=== PATIENT | female | born 1990 | race Caucasian/White ===

== ENCOUNTER 2021-10-13 12:08 | Outpatient (REF) | payer OTHER, SELFPAY ==
[2021-10-13 14:57] LABS: HCT 39.1 % (36.0-46.0); HGB 12.3 g/dL (11.2-15.7); MCH 26.7 pg (27.0-33.0); MCHC 31.5 % (32.0-36.0); MCV 85 fL (80-95); MPV 9.3 fL (8.0-11.0); Platelet Count 376 10^3/uL (130-400); RBC 4.61 10^6/uL (3.93-5.22); RDW 15.4 % (11.7-14.6); RDW-SD 47.8 fL; WBC 7.58 10^3/uL (4.4-10.8)
[2021-10-13 15:10] LABS: ALT 41 U/L (14-59); AST 23 U/L (15-37); Albumin 3.6 g/dL (3.4-5.0); Alkaline Phosphatase 130 U/L (46-116); Anion Gap 10.4 mmol/L (3-11); BUN 19 mg/dL (7-18); Bilirubin, Total 0.3 mg/dL (0.2-1.0); CO2 24.6 mmol/L (21.0-32.0); CREATININE 0.9 mg/dL (0.55-1.02); Calcium 8.8 mg/dL (8.5-10.1); Chloride 106 mmol/L (98-107); Glucose 91 mg/dL (74-106); Potassium 4.7 mmol/L (3.5-5.1); Sodium 141 mmol/L (136-145); TSH 1.97 uIU/mL (0.36-3.74); Total Protein 7.1 g/dL (6.4-8.2)
[2021-10-14 10:07] LABS: HIV-1/2 Ag & Ab Screen Negative (Negative)
[2021-10-14 14:25] LABS: Chlamydia Result Negative (Negative); GC Result Negative (Negative)
== END 2021-10-13 12:09 | disposition home or self-care (01) ==
LOC: NCHCN 12:08
PROVIDERS: Visit Provider Registered Nurse
DX: Z00.00 Encounter for general adult medical examination without abnormal findings (principal); E66.3 Overweight; Z11.4 Encounter for screening for human immunodeficiency virus [HIV]; Z11.3 Encounter for screening for infections with a predominantly sexual mode of transmission
CPT/HCPCS: 80053; 85027; 86803; 87389; 87491; 87591; 84443

== ENCOUNTER 2021-11-11 10:18 | Outpatient (REF) | payer OTHER, SELFPAY ==
--- NOTE | 2021-11-11 09:00 | PAPFT_PTH ---
PATIENT: Ginny Malik LOC: [facility] U#:[id number] AGE/SX: 31/F ROOM: RE11/11/[address]: Melonie Rao : 1990 BED: DIS: 11/11/2021 SPEC #: [id number] RECD: 11/11/21 17:03 STATUS: CHRISTINE REQ #: [id number] ALIX: 11/11/21 09:[address]: Melonie Rao DEPT: [facility] Cytology RECD BY: Chloe Richardson ENTERED: 11/11/21 17:03 SP TYPE: PAPFT OT DR: Unknown,Unknown Tissues: 1 - CX/ENDOCX FOR PAP SMEARS Procedures: PAP THIN PREP/[facility] Screening HPV DNA PROBE Comments: [id number] (CHLAMYDIA/GC)
[2021-11-11 15:31] LABS: Alkaline Phosphatase 134 U/L (46-116); GGT 109 U/L (5-55)
[2021-11-14 12:15] LABS: Hepatitis C Ab w Rflx HCV PCR Negative (Negative)
[2021-11-14 14:37] LABS: Chlamydia Result Negative (Negative); GC Result Negative (Negative)
== END 2021-11-11 10:19 | disposition home or self-care (01) ==
LOC: NCHCN 10:18
PROVIDERS: Visit Provider Registered Nurse
DX: Z12.4 Encounter for screening for malignant neoplasm of cervix (principal); Z11.51 Encounter for screening for human papillomavirus (HPV); Z11.59 Encounter for screening for other viral diseases; Z11.3 Encounter for screening for infections with a predominantly sexual mode of transmission; R74.8 Abnormal levels of other serum enzymes
CPT/HCPCS: 86803; 87491; 87591; 88142; 82977; 84075; 87624

== ENCOUNTER 2022-09-08 21:24 | Outpatient (REF) | payer OTHER, SELFPAY ==
[2022-09-08 22:00] LABS: ALT 51 U/L (14-59); AST 29 U/L (15-37); Albumin 3.6 g/dL (3.4-5.0); Alkaline Phosphatase 117 U/L (46-116); Anion Gap 4.9 mmol/L (3-11); BUN 12 mg/dL (7-18); Bilirubin, Total 0.2 mg/dL (0.2-1.0); CO2 28.1 mmol/L (21.0-32.0); CREATININE 0.9 mg/dL (0.55-1.02); Calcium 8.7 mg/dL (8.5-10.1); Chloride 106 mmol/L (98-107); Estimated GFR 86.03 (mL/min/1.73m2); Glucose 86 mg/dL (74-106); Potassium 4.5 mmol/L (3.5-5.1); Sodium 139 mmol/L (136-145); Total Protein 7.4 g/dL (6.4-8.2)
== END 2022-09-08 21:25 | disposition home or self-care (01) ==
LOC: NCHCN 21:24
PROVIDERS: Visit Provider Registered Nurse
DX: R74.8 Abnormal levels of other serum enzymes (principal); Z51.81 Encounter for therapeutic drug level monitoring
CPT/HCPCS: 80053

== ENCOUNTER 2023-02-09 16:10 | Outpatient (REF) | payer OTHER, SELFPAY ==
[2023-02-09 16:06] LABS: ALT 43 U/L (14-59); AST 22 U/L (15-37); Albumin 3.7 g/dL (3.4-5.0); Alkaline Phosphatase 105 U/L (46-116); Anion Gap 8.5 mmol/L (3-11); BUN 8 mg/dL (7-18); Bilirubin, Total 0.4 mg/dL (0.2-1.0); CO2 24.5 mmol/L (21.0-32.0); Calcium 9.6 mg/dL (8.5-10.1); Chloride 103 mmol/L (98-107); Estimated GFR 75.81 (mL/min/1.73m2); Glucose 91 mg/dL (74-106); Potassium 4.2 mmol/L (3.5-5.1); Sodium 136 mmol/L (136-145); TSH (W/Ref FT4) 2.52 uIU/mL (0.36-3.74); Total Protein 7.6 g/dL (6.4-8.2)
== END 2023-02-09 16:11 | disposition home or self-care (01) ==
LOC: NCHCN 16:10
PROVIDERS: PCP Family Medicine; Visit Provider Family Medicine
DX: Z00.00 Encounter for general adult medical examination without abnormal findings (principal); E66.8 Other obesity
CPT/HCPCS: 80053; 84443